=== PATIENT | female | born 1965 | race Caucasian/White ===

== ENCOUNTER → 2016-08-25 | Outpatient (CLI) | payer BC ==
[~2016-08-25] MED LIST: AMITIZA24 MCG PO; ASPIRIN 81M81 MG/TA2 PO; CYMBALTA 20MG20 MG PO; DOXYCYCLINE 10100 MG PO; LOFIBRA54 MG PO; LOPRESSOR 225 MG/TAB PO; NITROSTAT0.4 MG/TAB SL; PLAVIX 75MG TAB75 MG PO; PRIL40 PO; SYNTHROID0.05 MG/TA PO; VALIUM 5MG T5 MG/TAB PO; ZOCOR5 MG PO
== END ==
LOC: MC.RAD 11:17
DX: Z12.31 Encounter for screening mammogram for malignant neoplasm of breast (principal)

== ENCOUNTER → 2018-11-24 | Outpatient (CLI) | payer BC ==
[~2018-11-24] MED LIST changes: +ANORO IH; +CRESTOR40 MG PO; +PRENATAL 191 CTB PO; +PROAIR HFA0.09 MG/AC IH; +PROTONIX20 MG PO; +REPATHA SU140 MG/1 M SQ
[2018-11-24 11:36] LABS: BASO # 0.1 (0.0-0.2); BASO % 0.6 % (0.0-2.0); EOS # 0.1 (0.0-0.7); EOS % 0.9 % (0-4.0); GRAN # 6.8 (1.4-6.5); GRAN % 59.5 % (42.2-75.2); HEMOGLOBIN 15.4 g/dl (12.5-16.0); LYMPH # 3.6 (1.2-3.4); LYMPH % 31.6 % (20.0-51.0); MEAN CELL VOLUME 90 fl (80.0-100.0); MEAN CORPUSCULAR HEMOGLOBIN 29 pg (27.0-31.0); MEAN CORPUSCULAR HGB CONC 33 g/dl (33.0-37.0); MEAN PLATELET VOLUME 8.7 fl (7.4-10.4); MONO # 0.8 (0.1-0.6); MONO % 7.1 % (1.7-9.3); PLATELET COUNT 443 K/mm3 (130-400); RED BLOOD COUNT 5.25 M/mm3 (4.10-5.30); REDCELL DISTRIBUTION WIDTH-CV 13.3 % (11.5-14.5)
[2018-11-24 11:40] LABS: BILIRUBIN,TOTAL 0.2 mg/dL (0.0-1.0); CALCIUM 8.8 mg/dL (8.4-10.2); CREATININE, serum 0.72 (0.52-1.25); TOTAL PROTEIN 6.9 gm/dL (6.4-8.2)
[2018-11-24 12:13] LABS: ERYTHROCYTE SEDIMENTATION RATE 5 mm/hr (0-30)
== END ==
LOC: COL.LAB 11:03
PROVIDERS: Family Medicine
DX: R68.83 Chills (without fever) (principal); R50.9 Fever, unspecified; M54.2 Cervicalgia

== ENCOUNTER → 2019-02-17 | Outpatient (CLI) | payer BC | LOC: MC.RAD 11:30 | DX: Z12.31 Encounter for screening mammogram for malignant neoplasm of breast (principal) ==

== ENCOUNTER → 2019-05-05 | Outpatient (CLI) | payer BC | LOC: COL.RAD 12:09 | DX: J84.10 Pulmonary fibrosis, unspecified (principal) ==

== ENCOUNTER → 2020-10-25 | Outpatient (CLI) | payer BC | LOC: MC.RAD 13:11 | DX: Z12.31 Encounter for screening mammogram for malignant neoplasm of breast (principal) ==

== ENCOUNTER 2021-11-04 06:26 | Emergency (ER) | payer BC ==
[~2021-11-04] VITALS: Ht 162.6 cm; Wt 60.5 kg
[2021-11-04 06:59] LABS: BASO # 0.1 K/mm3 (0.0-0.2); BASO % 0.8 % (0.0-2.0); EOS # 0.2 K/mm3 (0.0-0.7); EOS % 1.1 % (0.0-4.0); GRAN # 8.1 K/mm3 (1.4-6.5); GRAN % 59.8 % (42.2-75.2); HEMATOCRIT 45.1 % (37.0-47.0); HEMOGLOBIN 15.2 g/dl (12.5-16.0); LYMPH # 4.2 K/mm3 (1.2-3.4); LYMPH % 30.7 % (20.0-51.0); MEAN CELL VOLUME 87 fl (80.0-100.0); MEAN CORPUSCULAR HEMOGLOBIN 29 pg (27-31); MEAN CORPUSCULAR HGB CONC 34 g/dl (33.0-37.0); MEAN PLATELET VOLUME 8.6 fl (7.4-10.4); MONO % 7.1 % (1.7-9.3); PLATELET COUNT 482 K/mm3 (130-400); RED BLOOD COUNT 5.17 M/mm3 (4.10-5.30); REDCELL DISTRIBUTION WIDTH-CV 14.7 % (11.5-14.5)
[2021-11-04 07:17] LABS: ALBUMIN 3.4 gm/dL (3.5-5.0); ALKALINE PHOSPHATASE 68 U/L (40-150); ANION GAP 10 mmol/L (7-16); AST,SGOT 14 U/L (5-34); BILIRUBIN,TOTAL 0.4 mg/dL (0.2-1.2); BLOOD UREA NITROGEN 11 mg/dL (10-20); CALCIUM 9.4 mg/dL (8.4-10.2); CARBON DIOXIDE 21 mmol/L (22-29); CHLORIDE 108 mmol/L (98-107); CREATININE, serum 0.78 mg/dL (0.57-1.11); GLUCOSE 121 mg/dL (70-99); SODIUM 139 mmol/L (136-145); TOTAL PROTEIN 6.6 gm/dL (6.2-8.1)
[2021-11-04 07:21] LABS: ALANINE AMINOTRANSFERASE < 6 U/L (0-55)
[2021-11-04 10:57] VITALS: BP 104/70; PULSE 74
== END 2021-11-04 11:00 | disposition home or self-care (01) ==
LOC: COL.ER 06:26
PROVIDERS: Emergency Medicine
DX: R07.89 Other chest pain (principal); F17.210 Nicotine dependence, cigarettes, uncomplicated; Z95.5 Presence of coronary angioplasty implant and graft

== ENCOUNTER → 2021-12-03 | Outpatient (CLI) | payer BC | LOC: MC.RAD 10-30 10:15 | DX: Z12.31 Encounter for screening mammogram for malignant neoplasm of breast (principal) ==

== ENCOUNTER → 2023-05-26 | Outpatient (CLI) | payer BC, OTHER ==
[~2023-05-26] MED LIST changes: +ZOFRAN ODT4 MG PO
== END ==
LOC: MC.RAD 11:32
DX: Z12.31 Encounter for screening mammogram for malignant neoplasm of breast (principal)

== ENCOUNTER → 2023-12-16 | Outpatient (CLI) | payer BC ==
[~2023-12-16] MED LIST changes: +CYMBALTA 30MG30 MG PO; +FLAGYL500 MG PO; +LEVAQUIN 750MG750 M1 PO; +LINZESS72 MCG PO; +ZETIA 10MG TAB10 MG PO
[2023-12-16 12:25] LABS: COLLECTION METHOD CLEAN CATCH
[2023-12-16 12:35] LABS: URINE APPEARANCE CLEAR (CLEAR/HAZY); URINE BLOOD NEGATIVE (NEGATIVE); URINE COLOR Dark Yellow (YELLOW); URINE GLUCOSE NEGATIVE (NEGATIVE); URINE KETONE TRACE (NEGATIVE); URINE NITRATE NEGATIVE (NEGATIVE); URINE PROTEIN(semi-quant) TRACE (NEGATIVE)
[2023-12-16 12:42] LABS: HEMATOCRIT 46.2 % (37.0-47.0); HEMOGLOBIN 15.7 g/dl (12.5-16.0); MEAN CELL VOLUME 88 fl (80.0-100.0); MEAN CORPUSCULAR HEMOGLOBIN 30 pg (27-31); MEAN CORPUSCULAR HGB CONC 34 g/dl (33.0-37.0); MEAN PLATELET VOLUME 8.8 fl (7.4-10.4); PLATELET COUNT 443 K/mm3 (130-400); RED BLOOD COUNT 5.28 M/mm3 (4.10-5.30); REDCELL DISTRIBUTION WIDTH-CV 13.7 % (11.5-14.5)
[2023-12-16 12:48] LABS: ALBUMIN 3.3 g/dL (3.5-5.0); BILIRUBIN,TOTAL 0.5 mg/dL (0.2-1.2); C-REACTIVE PROTEIN 9.84 mg/dL (0.00-0.50); CALCIUM 9.1 mg/dL (8.4-10.2); CREATININE, serum 0.81 mg/dL (0.57-1.11); POTASSIUM 3.9 mEq/L (3.5-4.5); TOTAL PROTEIN 6.8 g/dl (6.2-8.1)
[2023-12-16 13:31] LABS: BAND 22 % (0-10); LYMPHOCYTE 21 % (20.0-51.0); NEUTROPHILS 47 % (42.0-75.2); PLATELET ESTIMATE NORMAL (NORMAL)
== END ==
LOC: COL.LAB 11:41 → COL.RAD 11:48
PROVIDERS: Family Medicine
DX: J44.9 Chronic obstructive pulmonary disease, unspecified (principal); R10.31 Right lower quadrant pain

== ENCOUNTER 2023-12-17 13:05 | Inpatient (IN) | payer BC, OTHER ==
[~2023-12-17] VITALS: Ht 162.6 cm; Wt 62.7 kg
[~2023-12-17 13:05] MED LIST changes: -CYMBALTA 30MG30 MG PO; -FLAGYL500 MG PO; -Iohexol 300 - 100 ML VIAL IV ONE; -LEVAQUIN 750MG750 M1 PO; -LINZESS72 MCG PO; -NS 100 ML IV SCH; -ZETIA 10MG TAB10 MG PO
[2023-12-17] MEDS ORDERED: Acetaminophen 500 MG TAB PO PRN (14:15)
[2023-12-17] MEDS ORDERED: Ondansetron 4 MG/2 ML VIAL IV PRN (14:15)
[2023-12-17] MEDS ORDERED: NS 1,000 ML IV SCH (14:15)
[2023-12-17] MEDS ORDERED: CYMBALTA 30MG30 MG PO (14:18)
[2023-12-17 14:19] VITALS: BP 125/61; PULSE 83; TEMP 98.5
[2023-12-17] MEDS ORDERED: LINZESS72 MCG PO (14:21)
[2023-12-17] MEDS ORDERED: REPATHA SU140 MG/1 M SQ (14:22)
[2023-12-17] MEDS ORDERED: ZETIA 10MG TAB10 MG PO (14:23)
[2023-12-17] MEDS ORDERED: LEVAQUIN 750MG750 M1 PO (14:25)
[2023-12-17] MEDS ORDERED: Meropenem 500 MG in Water For Injection,Sterile 10 ML IV SCH (14:30)
--- NOTE | 2023-12-17 14:37 | NUR ---
MREEPENEM FLAGGED D/T PENICILLIN ALLERGY. PHARMACY CALLED AND STATED SAFE TO ADMINISTER, WATCH PATIENT FOR FIRST DOSE.
[2023-12-17] MEDS ORDERED: Albuterol/Ipratropium 3 MG-0.5 MG/3 ML Neb Soln IH PRN (15:15)
[2023-12-17] MEDS ORDERED: Nicotine 21 MG DAILY PATCH TD SCH (15:16)
[2023-12-17 15:31] LABS: BASO # 0.1 K/mm3 (0.0-0.2); BASO % 0.7 % (0.0-2.0); EOS # 0.1 K/mm3 (0.0-0.7); GRAN # 8.6 K/mm3 (1.4-6.5); GRAN % 72.6 % (42.2-75.2); LYMPH # 2.1 K/mm3 (1.2-3.4); LYMPH % 17.6 % (20.0-51.0); MEAN CELL VOLUME 88 fl (80.0-100.0); MEAN CORPUSCULAR HGB CONC 34 g/dl (33.0-37.0); MEAN PLATELET VOLUME 8.8 fl (7.4-10.4); MONO # 0.9 K/mm3 (0.1-0.6); MONO % 7.8 % (1.7-9.3); RED BLOOD COUNT 4.07 M/mm3 (4.10-5.30); REDCELL DISTRIBUTION WIDTH-CV 13.3 % (11.5-14.5)
[2023-12-17 15:35] LABS: HEMATOCRIT 35.6 % (37.0-47.0); HEMOGLOBIN 12.1 g/dl (12.5-16.0); MEAN CORPUSCULAR HEMOGLOBIN 30 pg (27-31); PLATELET COUNT 334 K/mm3 (130-400)
[2023-12-17 15:48] LABS: CALCIUM 6.7 mg/dL (8.4-10.2); CREATININE, serum 0.62 mg/dL (0.57-1.11); MAGNESIUM 1.4 mg/dL (1.6-2.6)
[2023-12-17 15:56] LABS: POTASSIUM 2.8 mEq/L (3.5-4.5)
[2023-12-17 15:57] VITALS: BP 106/71; PULSE 76; TEMP 98.2
--- NOTE | 2023-12-17 16:02 | NUR ---
md notified of critical pot level of 2.8 and current magnesium of 1.4. per TORB start patient on k protocol and give 4gm of magnesium now x1.
[2023-12-17] MEDS ORDERED: Magnesium Sulfate 8% 50 ML IV ONE (16:15)
[2023-12-17] MEDS ORDERED: Potassium Bicarbonate/Citrate 20 MEQ Effervescent TAB PO SCH (16:15)
[2023-12-17] MEDS ORDERED: *Potassium Replacement Protocol MC SCH (16:15)
--- NOTE | 2023-12-17 18:50 | NUR ---
PATIENT RESTING IN BED SITTING UP WITH TV ON WITH NO FAMILY PRESENT WITH NO ACUTE DISTRESS NOTED. PATIENT ON ROOM AIR. NS AND MAGNESIUM INFUSING INTO RIGHT FOREARM WITH NO COMPLICATIONS NOTED. BEDSIDE SHIFT REPORT COMPLETED WITH SAIGE AT THIS TIME. PATIENT DENIES ANY NEEDS. BED IN LOW POSITION WITH WHEELS LOCKED WITH RAILS UP X3 AND CALL LIGHT WITHIN REACH.
[2023-12-17 19:27] LABS: CLOSTRIDIUM DIFF A/B NEG
[2023-12-17 19:38] VITALS: BP 99/65; PULSE 70; TEMP 98
[2023-12-17 20:30] VITALS: BP_SYST 99
--- NOTE | 2023-12-17 20:30 | NUR ---
PATIENT SITTING UP IN BED WITH TV ON WITH NO FAMILY PRESENT WITH NO ACUTE DISTRESS NOTED. PATIENT ON ROOM AIR. MAGNESIUM INFUSION COMPLETED. NS INFUSING INTO RIGHT FOREARM WITH NO COMPLICATONS NOTED. ASSESSMENT AND MEDICATION ADMINISTRATION COMPLETED AT THIS TIME. PATIENT TOLERATED WELL. ALL QUESTIONS ANSWERED. ISOLATION DISCONTINUED DUE TO C-DIFF TEST BEING NEGATIVE. PATIENT REQUESTED ANOTHER PILLOW AND WAS GIVEN. ALL NEEDS MET. BED IN LOW POSIITON WITH WHEELS LOCKED WITH RAILS UP X2 AND CALL LIGHT WITHIN REACH.
[2023-12-17 23:00] VITALS: BP 85/52; PULSE 70; TEMP 97.7
[2023-12-18] VITALS: BP_SYST 85
[2023-12-18 03:23] VITALS: BP 89/62; PULSE 66; TEMP 97.7
[2023-12-18 04:00] VITALS: BP_SYST 89
[2023-12-18 05:30] LABS: BASO # 0.1 K/mm3 (0.0-0.2); BASO % 0.8 % (0.0-2.0); EOS # 0.2 K/mm3 (0.0-0.7); EOS % 2.2 % (0.0-4.0); GRAN # 6.2 K/mm3 (1.4-6.5); GRAN % 61.5 % (42.2-75.2); HEMATOCRIT 40.5 % (37.0-47.0); HEMOGLOBIN 13.7 g/dl (12.5-16.0); LYMPH # 2.4 K/mm3 (1.2-3.4); LYMPH % 23.8 % (20.0-51.0); MEAN CELL VOLUME 87 fl (80.0-100.0); MEAN CORPUSCULAR HEMOGLOBIN 29 pg (27-31); MEAN CORPUSCULAR HGB CONC 34 g/dl (33.0-37.0); MEAN PLATELET VOLUME 8.8 fl (7.4-10.4); MONO # 1.1 K/mm3 (0.1-0.6); MONO % 11.2 % (1.7-9.3); PLATELET COUNT 360 K/mm3 (130-400); RED BLOOD COUNT 4.67 M/mm3 (4.10-5.30); REDCELL DISTRIBUTION WIDTH-CV 13.4 % (11.5-14.5)
[2023-12-18 05:52] LABS: CALCIUM 8.1 mg/dL (8.4-10.2); CREATININE, serum 0.65 mg/dL (0.57-1.11); MAGNESIUM 2.7 mg/dL (1.6-2.6); POTASSIUM 4.4 mEq/L (3.5-4.5)
[2023-12-18 07:33] VITALS: BP 106/69; PULSE 67; TEMP 97.4
[2023-12-18] MEDS ORDERED: Prenatal Vitamins/Iron/FA TAB PO SCH (09:00)
[2023-12-18] MEDS ORDERED: DULoxetine 30 MG CAP PO SCH (09:00)
[2023-12-18] MEDS ORDERED: Clopidogrel 75 MG TAB PO SCH (09:00)
[2023-12-18 09:02] VITALS: BP_SYST 106
[2023-12-18] MEDS ORDERED: Nicotine 21 MG DAILY PATCH TD SCH (11:23)
[2023-12-18 11:29] VITALS: BP 118/60; PULSE 63; TEMP 97.5
--- NOTE | 2023-12-18 13:11 | NUR ---
Data: Patient declined spiritual care visit offered during [facility] [employer] rounds. Assessment: None at this time. Patient declined. Plan of Care: [facility] will remain available as needed/requested while Patient is admitted to this hospital.
--- NOTE | 2023-12-18 14:02 | NUR ---
SW met with patient to complete intake and discuss discharge planning. Patient reports she lives outside [place], her PCP is Dr Smith and pharmacy of choice is [facility] in [place]. Patient reports no DMEs and independent with ADLs. NOK is daughter Kristen Herbert [phone]. Patient is anticipating to discharge home, no further needs at this time. Discharge plan: home
[2023-12-18] MEDS ORDERED: FLAGYL500 MG PO (14:39)
--- NOTE | 2023-12-18 15:24 | NUR ---
PATIENT TOLERATED LUNCH WITHOUT ANY ISSUES OR COMPLAINTS. PATIENT ASKED THIS RN IF SHE CAN CALL A RIDE TO GO HOME. MD NOTIFIED AND PLACED DSICAHRGE. PATIENT IV REMOVED.
--- NOTE | 2023-12-18 15:24 | NUR ---
PATIENT TAKEN TO ER ENTRANCE VIA WHEELCHAIR. PAETIENT DISCHARGED IN STABLE CONDITION
== END 2023-12-18 15:25 | disposition home or self-care (01) | DRG 391 ==
LOC: MEDICAL 13:05
PROVIDERS: ADMIT Internal Medicine
DX: K57.20 Diverticulitis of large intestine with perforation and abscess without bleeding (principal); K83.1 Obstruction of bile duct; Z98.51 Tubal ligation status; Z90.49 Acquired absence of other specified parts of digestive tract; Z79.899 Other long term (current) drug therapy; Z95.5 Presence of coronary angioplasty implant and graft; E78.5 Hyperlipidemia, unspecified; E03.9 Hypothyroidism, unspecified; J44.9 Chronic obstructive pulmonary disease, unspecified; K57.92 Diverticulitis of intestine, part unspecified, without perforation or abscess without bleeding; Z79.01 Long term (current) use of anticoagulants; Z79.82 Long term (current) use of aspirin; F17.210 Nicotine dependence, cigarettes, uncomplicated; Z88.0 Allergy status to penicillin; Z88.5 Allergy status to narcotic agent; Z23 Encounter for immunization
CPT/HCPCS: J1650; J2185; J3475; J7030

== ENCOUNTER → 2023-12-17 | Outpatient (CLI) | payer BC ==
[~2023-12-17] MED LIST changes: +Iohexol 300 - 100 ML VIAL IV ONE; +NS 100 ML IV SCH
== END ==
LOC: COL.RAD 09:18
DX: K57.20 Diverticulitis of large intestine with perforation and abscess without bleeding (principal); D35.00 Benign neoplasm of unspecified adrenal gland
CPT/HCPCS: Q9967

== ENCOUNTER 2024-01-13 09:57 | Emergency (ER) | payer BC ==
[~2024-01-13] VITALS: Ht 162.6 cm; Wt 62.7 kg
[~2024-01-13 09:57] MED LIST changes: +CYMBALTA 30MG30 MG PO; +FLAGYL500 MG PO; +LEVAQUIN 750MG750 M1 PO; +LINZESS72 MCG PO; +ZETIA 10MG TAB10 MG PO
[2024-01-13 10:08] VITALS: TEMP 98.5
[2024-01-13] MEDS ORDERED: NS 1,000 ML IV ONE (10:30)
[2024-01-13 10:41] LABS: BASO # 0.1 K/mm3 (0.0-0.2); BASO % 0.5 % (0.0-2.0); EOS # 0.1 K/mm3 (0.0-0.7); GRAN # 9.7 K/mm3 (1.4-6.5); GRAN % 74.1 % (42.2-75.2); HEMATOCRIT 47.8 % (37.0-47.0); HEMOGLOBIN 15.8 g/dl (12.5-16.0); LYMPH # 2.1 K/mm3 (1.2-3.4); LYMPH % 16.2 % (20.0-51.0); MEAN CELL VOLUME 91 fl (80.0-100.0); MEAN CORPUSCULAR HEMOGLOBIN 30 pg (27-31); MEAN CORPUSCULAR HGB CONC 33 g/dl (33.0-37.0); MEAN PLATELET VOLUME 8.7 fl (7.4-10.4); MONO % 7.8 % (1.7-9.3); PLATELET COUNT 448 K/mm3 (130-400); RED BLOOD COUNT 5.27 M/mm3 (4.10-5.30); REDCELL DISTRIBUTION WIDTH-CV 14.5 % (11.5-14.5)
[2024-01-13] MEDS ORDERED: Morphine 4 MG/ML VIAL IV ONE (10:45)
[2024-01-13 10:54] LABS: ALBUMIN 3.3 g/dL (3.5-5.0); BILIRUBIN,TOTAL 0.4 mg/dL (0.2-1.2); C-REACTIVE PROTEIN 7.04 mg/dL (0.00-0.50); CALCIUM 9.4 mg/dL (8.4-10.2); CREATININE, serum 0.79 mg/dL (0.57-1.11); POTASSIUM 3.8 mEq/L (3.5-4.5); TOTAL PROTEIN 7.1 g/dl (6.2-8.1)
[2024-01-13] MEDS ORDERED: Acetaminophen 500 MG TAB PO ONE (11:00)
[2024-01-13] MEDS ORDERED: Iohexol 300 - 100 ML VIAL IV ONE (11:29)
[2024-01-13] MEDS ORDERED: NS 100 ML IV SCH (11:30)
[2024-01-13] MEDS ORDERED: FLAGYL500 MG PO (12:01)
[2024-01-13] MEDS ORDERED: LEVAQUIN 750MG750 M1 PO (12:01)
[2024-01-13 12:14] VITALS: BP 136/84; PULSE 67
[2024-01-13] MEDS ORDERED: Ciprofloxacin 500 MG TAB PO ONE (12:15)
[2024-01-13] MEDS ORDERED: [UNRECOGNIZED DRUG - OTHER] PO ONE (12:15)
[2024-01-13] MEDS ORDERED: levoFLOXacin 750 MG TAB PO ONE (12:15)
[2024-01-13] MEDS ORDERED: METRONIDAZOLE 250 MG PO ONE (12:15)
== END 2024-01-13 12:29 | disposition home or self-care (01) ==
LOC: COL.ER 09:57
PROVIDERS: Physician Assistant
DX: K57.32 Diverticulitis of large intestine without perforation or abscess without bleeding (principal); K50.00 Crohn's disease of small intestine without complications; F17.210 Nicotine dependence, cigarettes, uncomplicated
CPT/HCPCS: J7030; Q9967